=== PATIENT | female | born 1980 | race Caucasian/White ===

== ENCOUNTER → 2017-06-05 07:55 | Outpatient (CLI) | payer BC | END | disposition home or self-care (01) | LOC: D.CT 07:55 | DX: R10.11 Right upper quadrant pain (principal) ==

== ENCOUNTER → 2017-08-26 07:47 | Outpatient (CLI) | payer BC ==
[~2017-08-26 07:47] MED LIST: CYCLOBENZAPRINE10 MG PO; HYDROCODON-ACE1 EAC7 PO; LISINOPRIL-HCTZ1 TA2 PO; PROTONIX40 MG PO; VICTOZA0.6 MG/0.1 SQ; XANAX0.25 MG PO
[2017-10-20 08:18] VITALS: BMI 39.6
== END | disposition home or self-care (01) ==
LOC: D.RAD 07:47
DX: R13.10 Dysphagia, unspecified (principal)

== ENCOUNTER → 2017-09-03 07:47 | Outpatient (CLI) | payer BC ==
[2017-10-20 08:18] VITALS: BMI 39.6
== END | disposition home or self-care (01) ==
LOC: D.US 07:47
DX: R10.11 Right upper quadrant pain (principal)

== ENCOUNTER → 2017-09-15 07:41 | Outpatient (CLI) | payer BC ==
[2017-10-20 08:18] VITALS: BMI 39.6
== END | disposition home or self-care (01) ==
LOC: D.MRI 07:41
DX: O28.3 Abnormal ultrasonic finding on antenatal screening of mother (principal)

== ENCOUNTER 2017-10-20 05:52 | Day surgery (SDC) | payer BC ==
[2017-10-19 10:37] LABS: HEMATOCRIT 38.5 % (36.0-48.0); HEMOGLOBIN 12.5 g/dL (12-16); MCH 28.7 pg (26.0-34.0); MCHC 32.5 g/dL (31.0-37.0); MCV 88.3 fL (80.0-100.0); MEAN PLATELET VOLUME 11.9 fL (7.4-10.4); RBC 4.36 10x6/uL (4.00-5.40); WBC 8.5 10x3/uL (4.8-10.8)
[2017-10-19 11:02] LABS: CALC OSMOLALITY 276 mosm/kg (275-300); CALCIUM 9.1 mg/dL (8.5-10.1); CARBON DIOXIDE 29.2 mmol/L (21.0-32.0); CHLORIDE - SERUM 102 mmol/L (98-107); CREATININE - SERUM 0.8 mg/dL (0.6-1.3); GLUCOSE 95 mg/dL (74-106); POTASSIUM - SERUM 4.5 mmol/L (3.5-5.1); SODIUM 138 mmol/L (136-145); UREA NITROGEN 16 mg/dL (7-18); eGFR NON AFRICAN AMERICAN 85 mL/min (90-120)
[~2017-10-20] VITALS: Ht 165.1 cm; Wt 108.0 kg
[~2017-10-20 05:52] MED LIST changes: -CYCLOBENZAPRINE10 MG PO; -HYDROCODON-ACE1 EAC7 PO
[2017-10-20] MEDS ORDERED: CYCLOBENZAPRINE10 MG PO (08:16)
[2017-10-20 08:18] VITALS: BP 95/55; Ht 165.1 cm; Wt 108.0 kg
[2017-10-20 08:53] LABS: HCG URINE NEGATIVE (NEGATIVE)
[2017-10-20] MEDS ORDERED: HYDROCODON-ACE1 EAC7 PO (10:39)
--- NOTE | 2017-10-20 11:15 | NUR ---
PRE OP BP 95/55
== END 2017-10-20 12:20 | disposition home or self-care (01) ==
LOC: D.OPS 05:52 → D.PAN 09:00 → D.OPS 09:30 → D.PAN 09:30 → D.OPS 12:20
PROVIDERS: Anesthesiology; Surgery
DX: K81.1 Chronic cholecystitis (principal); I10 Essential (primary) hypertension; E11.9 Type 2 diabetes mellitus without complications; Z01.812 Encounter for preprocedural laboratory examination